=== PATIENT | male | born 2000 | race African-American/Black ===

== ENCOUNTER 2022-09-23 05:11 | Emergency (ER) | payer BC, OTHER ==
[~2022-09-23] VITALS: Ht 188 cm; Wt 73.0 kg
[2022-09-23] MEDS ORDERED: LIDOCAINE 1% INJ 20 ML VIAL INJ ONE (05:30)
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
[2022-09-23] MEDS ORDERED: fentaNYL INJ 100 MCG/2 ML AMP IVP PRN (05:45)
[2022-09-23 06:18] LABS: BASOPHILS % (AUTO) 1 % (0-10); EOSINOPHILS % (AUTO) 0 % (0-10); HEMATOCRIT 46 % (40-54); HEMOGLOBIN 15.4 g/dL (13.3-17.7); LYMPHOCYTES # (AUTO) 2.2 10^3/uL (1.0-4.0); LYMPHOCYTES % (AUTO) 27 % (12-44); MEAN CORPUSCULAR HEMOGLOBIN 29 pg (25-34); MEAN CORPUSCULAR HGB CONC 34 g/dL (32-36); MEAN CORPUSCULAR VOLUME 88 fL (80-99); MEAN PLATELET VOLUME 12.8 fL (9.0-12.2); MONOCYTES # (AUTO) 0.5 10^3/uL (0.0-1.0); MONOCYTES % (AUTO) 7 % (0-12); NEUTROPHILS # (AUTO) 5.1 10^3/uL (1.8-7.8); NEUTROPHILS % (AUTO) 65 % (42-75); PLATELET COUNT 206 10^3/uL (130-400); WHITE BLOOD COUNT 7.9 10^3/uL (4.3-11.0)
[2022-09-23 06:38] LABS: ALBUMIN 4.6 GM/DL (3.2-4.5); CHLORIDE 107 MMOL/L (98-107); POTASSIUM 3.3 MMOL/L (3.6-5.0); SODIUM 139 MMOL/L (135-145)
[2022-09-23 06:40] LABS: CALCIUM 9.4 MG/DL (8.5-10.1)
[2022-09-23 06:41] LABS: GLUCOSE 121 MG/DL (70-105); TOTAL PROTEIN 7.5 GM/DL (6.4-8.2)
[2022-09-23 06:42] LABS: CARBON DIOXIDE 18 MMOL/L (21-32)
[2022-09-23 06:43] LABS: BILIRUBIN,TOTAL 0.3 MG/DL (0.1-1.0)
[2022-09-23 06:44] LABS: ALKALINE PHOSPHATASE 57 U/L (40-136); CREATININE SERUM 1.13 MG/DL (0.60-1.30); GFR ESTIMATED 94
[2022-09-23] MEDS ORDERED: ONDANSETRON 4 MG/2 ML (SDV) Z0FRAN IVP ONE (06:45)
[2022-09-23] MEDS ORDERED: fentaNYL INJ 100 MCG/2 ML AMP IVP ONE ×2 (06:45→07:45)
[2022-09-23] MEDS ORDERED: NS IV 1000 ML 1,000 ML IV SCH ×2 (06:45→08:45)
[2022-09-23] MEDS ORDERED: proPOfol 200 MG/20 ML (DIPRIVAN) VIAL IV ONE (06:45)
[2022-09-23 06:46] LABS: BUN/CREATININE RATIO 8
[2022-09-23 06:47] LABS: ALANINE AMINOTRANSFERASE 91 U/L (0-55)
[2022-09-23 06:48] LABS: LIPASE 44 U/L (8-78)
[2022-09-23] MEDS ORDERED: LIDOCAINE UROJET 2% GEL 10 ML PKG TOP ONE (07:00)
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
[2022-09-23 08:38] LABS: BILIRUBIN,URINE NEGATIVE (NEGATIVE); CLARITY,URINE CLEAR; COLOR,URINE YELLOW; GLUCOSE, URINE (UA) NEGATIVE (NEGATIVE); KETONES,URINE NEGATIVE (NEGATIVE); LEUKOCYTE ESTERASE ,URINE NEGATIVE (NEGATIVE); NITRITE,URINE NEGATIVE (NEGATIVE); PROTEIN,URINE 3+ (NEGATIVE)
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
--- NOTE | 2022-09-23 08:45 | Diagnostic Imaging Report ---
INDICATION: Pain after trauma COMPARISON: None available TECHNIQUE: 3 radiographs of the right ankle dated 09/23/2022 FINDINGS: Acute obliquely oriented minimally comminuted fracture of the distal fibular shaft with associated minimal lateral displacement and mild apex medial angulation. Mild half shaft width anterior displacement is also identified. Acute fracturing of the base of the medial malleolus is noted which is laterally displaced and slightly distracted. There is slight asymmetry of the ankle mortise superiorly with slight widening noted medially. The talar dome appears intact. Significant pes planus deformity of the foot. IMPRESSION: Acute mildly displaced fracturing of the distal fibular shaft and medial malleolus as described above. Slight asymmetry of the ankle mortise, suggesting underlying ligamentous injury. Significant pes planus deformity of the foot, of uncertain chronicity. If there is clinical concern for the foot itself, dedicated radiographs of the right foot would be recommended. Soft tissue swelling about the ankle. Dictated by: Dictated on workstation # [id number]
[2022-09-23 08:49] LABS: BACTERIA,URINE FEW /HPF; SQUAMOUS EPITHELIAL CELL,UR 0-2 /HPF
--- NOTE | 2022-09-23 09:19 | Diagnostic Imaging Report ---
INDICATION: Post left hip reduction, hip dislocation COMPARISON: 09/23/2022. TECHNIQUE: Single radiograph of the pelvis dated 09/23/2022 at 0856 FINDINGS: The left femoral head demonstrates improved positioning compared to prior examination, now appearing to appropriately overlie the left acetabulum. Comminuted fracturing through the left acetabulum is again identified. This appears relatively similar to the prior examination. Raymundo catheter overlying the midline pelvis. Small amount of contrast is noted within the urinary bladder, decreased since the prior examination. No new fracture. IMPRESSION: Interval reduction of previously noted left hip dislocation with persistent comminuted fracturing of the left acetabulum. Dictated by: Dictated on workstation # [id number]
[2022-09-23 11:35] VITALS: BP 125/78
== END 2022-09-23 11:35 | disposition short-term general hospital (02) ==
LOC: ER 05:13
DX: S73.005A Unspecified dislocation of left hip, initial encounter (principal); S32.402A Unspecified fracture of left acetabulum, initial encounter for closed fracture; S82.891A Other fracture of right lower leg, initial encounter for closed fracture; S61.512A Laceration without foreign body of left wrist, initial encounter; S01.21XA Laceration without foreign body of nose, initial encounter; J93.9 Pneumothorax, unspecified; Z28.310 Unvaccinated for COVID-19; V47.5XXA Car driver injured in collision with fixed or stationary object in traffic accident, initial encounter; Y92.410 Unspecified street and highway as the place of occurrence of the external cause
CPT/HCPCS: 12002; 12011; 12052; 23605; 27752; 29515; 36415; 51702; 70450; 71260; 72125; 72128; 72131; 72170; 73610; 74177; 80053; 81000; 83690; 85025; 86900; 86901; 93041; 99291

== ENCOUNTER 2022-10-01 09:27 | Inpatient (IN) | payer BC ==
[~2022-10-01] VITALS: Ht 185.5 cm; Wt 68.5 kg
[2022-10-01] MEDS ORDERED: DIPH50CA33 PO (12:06)
[2022-10-01] MEDS ORDERED: ENOX40DI8 SQ (12:07)
[2022-10-01] MEDS ORDERED: META800T PO (12:08)
[2022-10-01] MEDS ORDERED: NALO4SPR3 NS (12:10)
[2022-10-01] MEDS ORDERED: OXYC10TA7 PO (12:10)
[2022-10-01] MEDS ORDERED: OXCA600T10 PO (12:11)
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
[2022-10-01] MEDS ORDERED: guaiFENesin/CODEINE (ROBITUSSIN AC) 10ML UDC PO PRN (13:30)
[2022-10-01] MEDS ORDERED: MELATONIN 3 MG TABLET PO PRN (13:30)
[2022-10-01] MEDS ORDERED: CALCIUM CARBONATE 500 MG (TUMS) TAB.CHEW PO PRN (13:30)
[2022-10-01] MEDS ORDERED: LOPERAMIDE 2 MG (IMODIUM) TABLET PO PRN (13:30)
[2022-10-01] MEDS ORDERED: BISACODYL 10 MG SUPP (DULCOLAX) PR PRN (13:30)
[2022-10-01] MEDS ORDERED: ONDANSETRON 4 MG (ZOFRAN) ORAL DISSOLVE TAB PO PRN (13:30)
[2022-10-01] MEDS ORDERED: DOCUSATE SODIUM 100 MG (COLACE) CAP PO PRN (13:30)
[2022-10-01] MEDS ORDERED: FLEET ENEMA ADULT 1 EA BTL PR PRN (13:30)
[2022-10-01] MEDS ORDERED: diphenhydrAMINE 25 MG TAB (BENADRYL) PO PRN (13:30)
[2022-10-01] MEDS ORDERED: LACTULOSE SYRUP 10GM/15ML (ENULOSE) 30ML UDC PO PRN (13:30)
[2022-10-01] MEDS ORDERED: NON-FORMULARY MEDICATION 1 EA EA (Diphenhydramine HCl 50 MG) PO PRN (13:30)
[2022-10-01] MEDS ORDERED: NON-FORMULARY MEDICATION 1 EA EA (Oxycodone HCl 10 MG) PO PRN (13:30)
[2022-10-01] MEDS ORDERED: ALPRAZolam 0.25 MG (XANAX) TAB PO PRN (13:30)
[2022-10-01 14:40] VITALS: BP 119/81
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
[2022-10-01] MEDS ORDERED: FLU QUADRIvalent (6 months+) 60 mcg/0.5 ml 2022-23 (Fluzone) IM ONE (18:00)
[2022-10-01] MEDS ORDERED: OXCA300O5 PO (18:55)
[2022-10-01] MEDS ORDERED: OXCA300T18 PO (18:56)
[2022-10-01 20:00] VITALS: BP 135/66
[2022-10-01] MEDS: OXcarbazepine (TRILEPTAL) 300 MG TAB PO SCH (20:26)
[2022-10-01] MEDS: DOCUSATE SODIUM 100 MG (COLACE) CAP PO SCH (20:36)
[2022-10-01] MEDS: SENNA W/DOCUSATE (SENOKOT S) TABLET PO SCH (20:36)
[2022-10-01] MEDS: polyethylene glycoL POWDER 17 GM (MIRALAX) PACK PO SCH (20:36)
[2022-10-01] MEDS ORDERED: OXcarbazepine (TRILEPTAL) 300 MG TAB PO SCH (21:00)
[2022-10-01] MEDS ORDERED: NON-FORMULARY MEDICATION 1 EA EA (Oxcarbazepine 600 MG) PO SCH (21:00)
[2022-10-01] MEDS ORDERED: METAXALONE 800 MG PO SCH (21:00)
[2022-10-02] MEDS: diphenhydrAMINE 25 MG TAB (BENADRYL) PO PRN ×2 (00:52→23:41)
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
[2022-10-02 06:09] LABS: BASOPHILS % (AUTO) 0 % (0-10); EOSINOPHILS # (AUTO) 0.1 10^3/uL (0.0-0.3); EOSINOPHILS % (AUTO) 1 % (0-10); HEMATOCRIT 28 % (40-54); HEMOGLOBIN 9.5 g/dL (13.3-17.7); LYMPHOCYTES # (AUTO) 1.9 10^3/uL (1.0-4.0); LYMPHOCYTES % (AUTO) 20 % (12-44); MEAN CORPUSCULAR HEMOGLOBIN 30 pg (25-34); MEAN CORPUSCULAR HGB CONC 34 g/dL (32-36); MEAN CORPUSCULAR VOLUME 89 fL (80-99); MEAN PLATELET VOLUME 10.8 fL (9.0-12.2); MONOCYTES # (AUTO) 1.1 10^3/uL (0.0-1.0); MONOCYTES % (AUTO) 11 % (0-12); NEUTROPHILS # (AUTO) 6.5 10^3/uL (1.8-7.8); NEUTROPHILS % (AUTO) 67 % (42-75); PLATELET COUNT 320 10^3/uL (130-400); WHITE BLOOD COUNT 9.7 10^3/uL (4.3-11.0)
[2022-10-02 06:23] LABS: ALBUMIN 3.6 GM/DL (3.2-4.5); BILIRUBIN,TOTAL 0.6 MG/DL (0.1-1.0); CALCIUM 9.2 MG/DL (8.5-10.1); CREATININE SERUM 0.77 MG/DL (0.60-1.30); POTASSIUM 4.1 MMOL/L (3.6-5.0); TOTAL PROTEIN 6.9 GM/DL (6.4-8.2)
[2022-10-02 07:33] VITALS: BP 134/73
[2022-10-02] MEDS: ENOXAPARIN 40 MG/0.4 ML (LOVENOX) SYR SQ SCH (08:26)
[2022-10-02] MEDS: DOCUSATE SODIUM 100 MG (COLACE) CAP PO SCH ×3 (08:27→20:58)
[2022-10-02] MEDS: SENNA W/DOCUSATE (SENOKOT S) TABLET PO SCH ×2 (08:27→20:57)
[2022-10-02] MEDS: OXcarbazepine (TRILEPTAL) 300 MG TAB PO SCH ×2 (08:27→20:29)
[2022-10-02] MEDS: polyethylene glycoL POWDER 17 GM (MIRALAX) PACK PO SCH ×2 (08:27→20:57)
--- NOTE | 2022-10-02 09:04 | Physical Therapy Daily Note ---
PT Daily Note-Current Subjective Pt sitting up in bed upon arrival. Pt agrees to PT. Pt reports to PT that he and family are making plans to be able to get pt back home to 2nd floor apartment when d/c from ARU. Pain Location: No Pain Reported Section J - Health Conditions 1. Rarely or not at all 2. Occasionally 3. Frequently 4. Almost constantly 8. Unable to answer Pain Effect on Sleep: 1 Pain Interference with Therapy: 1 Pain Interference w/Day-to-Day: 1 Mental Status Patient Orientation: Person, Place, Time, Situation Transfers SCALE: Activities may be completed with or without assistive devices. 0-Hzooleaftv-otfniqc completes the activity by him/herself with no assistance from a helper. 5-Set-up or Clean-up Assistance-helper sets up or cleans up; patient completes activity. [place] assists only prior to or following the activity. 4-Supervision or Touching Assistance-helper provides verbal cues and/or touching/steadying and/or contact guard assistance as patient completes activity. Assistance may be provided throughout the activity or intermittently. 3-Partial/Moderate Assistance-helper does LESS THAN HALF the effort. [place] lifts, holds or supports trunk or limbs, but provides less than half the effort. 2-Substantial/Maximal Assistance-helper does MORE THAN HALF the effort. [place] lifts or holds trunk or limbs and provides more than half the effort. 8-Rrwdgwsrf-mbyppp does ALL the effort. Patient does none of the effort to complete the activity. Or, the assistance of 2 or more helpers is required for the patient to complete the activity. If activity was not attempted, code reason: 7-Patient Refused. 9-Not Applicable-not attempted and the patient did not perform the activity before the current illness, exacerbation or injury. 10-Not Attempted due to Environmental Limitations-(lack of equipment, weather restraints, etc.). 88-Not Attempted due to Medical Conditions or Safety Concerns. Lying to Sitting/Side of Bed(Q: 4 Chair/Nob-uj-Zohoj Xfer(QC): 4 Weight Bearing Right Lower Extremity: Right Non Weight Bearing Left Lower Extremity: Left Non Weight Bearing s/p ORIF: R ankle NWB for 8 weeks starting 09/24/22- s/p ORIF: L acetabulum for 3 months starting 09/25/22 Wheelchair Training Does the Pt Use a Wheelchair?: Yes Wheel 50 ft with 2 turns (QC): 6 Wheel 150 ft (QC): 6 Type of Wheelchair: Manual Exercises NuStep Minutes: 15 NuStep Workload: 1 Treatments Tx focused on slide board TF (from bed to WCH & WCH to NuStep), strengthening and ROM w/in precautions and WB limits for both R ankle & L hip. Pt also completes WCH mobility focusing on sharp turns and backing up. Pt returns to room to rest at end of tx w/all needs met, call light in hand. Assessment Current Status: Good Progress Pt demonstrates good UE strength with TF and able to complete WCH mobility well. Pt demonstrates decreased weakness in L LE due to fx & WB status. PT Short Term Goals Short Term Goals Time Frame: Oct 08, 2022 Chair/mgt-wo-tuytg transfer: 5 PT Nursing Home Goals Nursing Home Goals PT Nursing Home Goals Time Frame: Oct 22, 2022 Roll Left & Right (QC): 6 Sit to Lying (QC): 6 Lying-Sitting on Side/Bed(QC): 6 Sit to Stand (QC): 88 Chair/Mhp-pn-Nttkc Xfer(QC): 6 Toilet Transfer (QC): 6 Car Transfer (QC): 6 Does the Patient Walk: No and Walking Goal NOT indicated Walk 10 feet (QC): 88 Walk 50ft with 2 Turns (QC): 88 Walk 150 ft (QC): 88 Walking 10ft on Uneven Surface: 88 1 Step (curb) (QC): 88 4 Steps (QC): 88 12 Steps (QC): 88 Picking up an Object (QC): 88 Does the Pt use WC or Scooter?: Yes Wheel 50 feet with 2 turns (QC: 6 Type: Manual Wheel 150 feet: 6 Type: Manual PT Plan Problem List Problem List: Activity Tolerance, Functional Strength Treatment/Plan Treatment Plan: Continue Plan of Care Treatment Plan: Bed Mobility, Education, Functional Activity Skyler, Functional Strength, Safety, Therapeutic Exercise, Transfers Treatment Duration: Oct 22, 2022 Frequency: At least 5 of 7 days/Wk (IRF) Estimated Hrs Per Day: 1.5 hours per day Patient and/or Family Agrees t: Yes Safety Risks/Education Patient Education: Transfer Techniques, Correct Positioning Teaching Recipient: Patient Teaching Methods: Discussion Response to Teaching: Verbalize Understanding Time Time In: 800 Time Out: 845 DATE: Oct 02, 2022 Total Billed Treatment Time: 45 Total Billed Treatment 1, WCH (15m), FA (15m) & EX (15m) TIFFANY PLASCENCIA PTA Oct 02, 2022 09:04
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
--- NOTE | 2022-10-02 10:35 | Occupational Ther Daily Note ---
OT Current Status-Daily Note Subjective Pt was up in his w/c and agreed to a shower today. Appearance Pt left sitting up in bed with all needs within reach. Mental Status/Objective Patient Orientation: Person, Place, Time, Situation ADL-Treatment Therapy Code Descriptions/Definitions Functional [place] Measure: 0=Not Assessed/NA 4=Minimal Assistance 1=Total Assistance 5=Supervision or Setup 2=Maximal Assistance 6=Modified [place] 3=Moderate Assistance 7=Complete IndependenceSCALE: Activities may be completed with or without assistive devices. 7-Jzulmxfqfr-hipozfk completes the activity by him/herself with no assistance from a helper. 5-Set-up or Clean-up Assistance-helper sets up or cleans up; patient completes activity. [place] assists only prior to or following the activity. 4-Supervision or Touching Assistance-helper provides verbal cues and/or touching/steadying and/or contact guard assistance as patient completes acti vity. Assistance may be provided throughout the activity or intermittently. 3-Partial/Moderate Assistance-helper does LESS THAN HALF the effort. [place] lifts, holds or supports trunk or limbs, but provides less than half the effort. 2-Substantial/Maximal Assistance-helper does MORE THAN HALF the effort. [place] lifts or holds trunk or limbs and provides more than half the effort. 7-Wvulryzbg-kdpnqx does ALL the effort. Patient does none of the effort to complete the activity. Or, the assistance of 2 or more helpers is required for the patient to complete the activity. If activity was not attempted, code reason: 7-Patient Refused. 9-Not Applicable-not attempted and the patient did not perform the activity before the current illness, exacerbation or injury. 10-Not Attempted due to Environmental Limitations-(lack of equipment, weather restraints, etc.). 88-Not Attempted due to Medical Conditions or Safety Concerns. Eating (QC): 6 Oral Hygiene (QC): 6 Shower/Bathe Self (QC): 5 Upper Body Dressing (QC): 5 Lower Body Dressing (QC): 3 (min-mod assist for donning pants (pulling pant over hips)) On/Off Footwear: 3 (min assist for donning sock with sock aide) Toileting Hygiene (QC): 5 (using the urinal) Toilet Transfer (QC): 4 Pt is able to complete all slide board transfers with supervision/set up assist for w/c placement and cues for safety. Pt is doing extremely well for day 2 of rehab. Pt able to don all clothing with use of AE to ensure hip precautions are followed. Therapist covered and taped R LE and L hip to prepare for shower. Pt completed transfer onto shower bench with only upper body strength, as he did not use the transfer board. Post demonstration of LHS, he was able to complete shower with set up assist. Pt was able to don shirt with set up assist. Once back in w/c, pt able to thread bilateral legs with community service officer coordinator and then required min-mod assist to pull pants over hips. Pt sat at sink to perform all grooming independently. Pt required min assist to don sock with sock aide- different sock aide will be attempted tomorrow. Pt practiced transfer to raised toilet with supervision. He was able to perform transfer with no difficulty while following all hip/LE precautions. He needs some assistance with w/c placement due to pt's long legs and small bathroom area, but other than that, he is doing well and increasing his independence with ADLs. Education OT Patient Education: Correct positioning, Energy conservation, Modified ADL techniques, Progress toward Goal/Update tx plan, Purpose of tx/functional activities, Reviewed precautions, Rehab process, Safety issues, Transfer techniques, Use of adapted equipment, W/C management Teaching Recipient: Patient Teaching Methods: Demonstration, Discussion Response to Teaching: Verbalize Understanding, Return Demonstration OT Short Term Goals Short Term Goals Time Frame: Oct 08, 2022 Eatin Oral hygiene: 6 Toileting hygiene: 4 Shower/bathe self: 3 Upper body dressin Lower body dressin Putting on/taking off footwear: 4 OT Manager Front Goals Mcfp Goals Time Frame: Oct 15, 2022 Acute change in mental status: 0 Inattention: 0 Disorganized thinkin Altered level of consciousness: 0 Eating (QC): 6 Oral Hygiene (QC): 6 Toileting Hygiene (QC): 6 Shower/Bathe Self (QC): 5 Upper Body Dressing (QC): 6 Lower Body Dressing (QC): 5 On/Off Footwear (QC): 6 Additional Goals: 1-Demonstrate ADL Tasks, 2-Verbalize Understanding, 3-Imp roveStrength/Skyler 1=Demonstrate adherence to instructed precautions during ADL tasks. 2=Patient will verbalize/demonstrate understanding of assistive devices/modifications for ADL. 3=Patient will improve strength/tolerance for activity to enable patient to perform ADL's. OT Education/Plan Problem List/Assessment Assessment: Decreased Activ Tolerance, Impaired I ADL's, Impaired Self-Care Skills Discharge Recommendations Plan/Recommendations: Continue POC Treatment Plan/Plan of Care Treatment,Training & Education: Yes Patient would benefit from OT for education, treatment and training to promote independence in ADL's, mobility, safety and/or upper extremity function for ADL's. Plan of Care: ADL Retraining, Caregiver Training, Functional Mobility, Group Exercise/Act as Ind, Orthotic Fitting/Training, UE Funct Exercise/Act, W/C Management Training Treatment Duration: Oct 15, 2022 Frequency: At least 5 of 7 days/Wk (IRF) Estimated Hrs Per Day: 1.5 hours per day (75-90 min/day ) Agreement: Yes Rehab Potential: Good Time Start Time: 09:15 Stop Time: 10:30 DATE: Oct 02, 2022 Total Time Billed (hr/min): 75 Billed Treatment Time 1 visit ADL x5 Shanique Mello OT Oct 02, 2022 10:35
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
[2022-10-02 20:00] VITALS: BP 138/89
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
[2022-10-03 07:21] VITALS: BP 137/89
[2022-10-03] MEDS: OXcarbazepine (TRILEPTAL) 300 MG TAB PO SCH ×2 (07:58→21:39)
[2022-10-03] MEDS: ENOXAPARIN 40 MG/0.4 ML (LOVENOX) SYR SQ SCH (07:59)
[2022-10-03] MEDS: ACETAMINOPHEN 325 MG TABLET PO PRN ×2 (09:04→21:40)
[2022-10-03] MEDS: polyethylene glycoL POWDER 17 GM (MIRALAX) PACK PO SCH ×2 (09:18→21:34)
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
--- NOTE | 2022-10-03 10:46 | Occupational Ther Daily Note ---
OT Current Status-Daily Note Subjective Pt was laying in bed with wound care nurse and nursing present in room changing his dressings. Pt reports that his family could possibly come in or Saturday or stair training, but he will call to double check. Appearance Pt was left laying in bed with all needs within reach. Mental Status/Objective Patient Orientation: Person, Place, Time, Situation ADL-Treatment Therapy Code Descriptions/Definitions Functional [place] Measure: 0=Not Assessed/NA 4=Minimal Assistance 1=Total Assistance 5=Supervision or Setup 2=Maximal Assistance 6=Modified [place] 3=Moderate Assistance 7=Complete IndependenceSCALE: Activities may be completed with or without assistive devices. 4-Kmgekytqgv-cbeqmyw completes the activity by him/herself with no assistance from a helper. 5-Set-up or Clean-up Assistance-helper sets up or cleans up; patient completes activity. [place] assists only prior to or following the activity. 4-Supervision or Touching Assistance-helper provides verbal cues and/or touching/steadying and/or contact guard assistance as patient completes activity. Assistance may be provided throughout the activity or intermittently. 3-Partial/Moderate Assistance-helper does LESS THAN HALF the effort. [place] lifts, holds or supports trunk or limbs, but provides less than half the effort. 2-Substantial/Maximal Assistance-helper does MORE THAN HALF the effort. [place] lifts or holds trunk or limbs and provides more than half the effort. 8-Fixhynfcm-pxrpic does ALL the effort. Patient does none of the effort to complete the activity. Or, the assistance of 2 or more helpers is required for the patient to complete the activity. If activity was not attempted, code reason: 7-Patient Refused. 9-Not Applicable-not attempted and the patient did not perform the activity befo re the current illness, exacerbation or injury. 10-Not Attempted due to Environmental Limitations-(lack of equipment, weather re straints, etc.). 88-Not Attempted due to Medical Conditions or Safety Concerns. Upper Body Dressing (QC): 5 Lower Body Dressing (QC): 5 On/Off Footwear: 3 Pt was able to doff and don UE and LE clothing with set up assist. No physical assistance needed. Pt used steam box operator to doff/don pants while supine/head slightly elevated in bed. Pt still required min assist for donning sock with sock aide, due to tight socks. Pt able to complete all transfers without slide board. Pt reports that he doesn't feel 100% ready to return home and would like to continue to get stronger. Although reports that he thinks he will have no problem with his home set up. Other Treatment Pt completed meal preparation task of making a no bake cheesecake. He required cues and education regarding hip precautions with lower shelving and refrigerator. Pt was able to appropriately carry all ingredients while propelling w/c through kitchen. He needed no physical assistance with task, only cues for how to use kitchen tools, as pt reported not cooking/baking a lot at home. He tolerated and performed the task well. Pt participated in UE exercises in all planes with 5 lb bilateral hand weights 1x15. He needed rest breaks in between each set, with visual SOB and lack of endurance and strength after completion of exercises. Education given for pursed lip breathing and breathing during exercises. Education OT Patient Education: Correct positioning, Energy conservation, Exercise program, Home exercise program, Modified ADL techniques, Purpose of tx/functional activities, Reviewed precautions, Rehab process, Use of adapted equipment, W/C management Teaching Recipient: Patient Teaching Methods: Demonstration, Discussion Response to Teaching: Verbalize Understanding, Return Demonstration OT Short Term Goals Short Term Goals Time Frame: Oct 08, 2022 Eatin Oral hygiene: 6 Toileting hygiene: 4 Shower/bathe self: 3 Upper body dressin Lower body dressin Putting on/taking off footwear: 4 OT [facility] Goals Sap Specialist Goals Time Frame: Oct 15, 2022 Acute change in mental status: 0 Inattention: 0 Disorganized thinkin Altered level of consciousness: 0 Eating (QC): 6 Oral Hygiene (QC): 6 Toileting Hygiene (QC): 6 Shower/Bathe Self (QC): 5 Upper Body Dressing (QC): 6 Lower Body Dressing (QC): 5 On/Off Footwear (QC): 6 Additional Goals: 1-Demonstrate ADL Tasks, 2-Verbalize Understanding, 3- ImproveStrength/Skyler 1=Demonstrate adherence to instructed precautions during ADL tasks. 2=Patient will verbalize/demonstrate understanding of assistive devices/modifications for ADL. 3=Patient will improve strength/tolerance for activity to enable patient to perform ADL's. OT Education/Plan Problem List/Assessment Assessment: Decreased Activ Tolerance, Decreased UE Strength, Impaired I ADL's, Impaired Self-Care Skills Discharge Recommendations Plan/Recommendations: Continue POC Therapy Discharge Recommendati: Bath Aide, Homemaker Support, Home & Family Equpiment Recommendations-D/C: Bath Chair, Knock Out Hand, Bedside Commode (drop arm), Hip Kit, Sock Aide Treatment Plan/Plan of Care Treatment,Training & Education: Yes Patient would benefit from OT for education, treatment and training to promote independence in ADL's, mobility, safety and/or upper extremity function for ADL's. Plan of Care: ADL Retraining, Caregiver Training, Functional Mobility, Group Exercise/Act as Ind, Orthotic Fitting/Training, UE Funct Exercise/Act, W/C Management Training Treatment Duration: Oct 15, 2022 Frequency: At least 5 of 7 days/Wk (IRF) Estimated Hrs Per Day: 1.5 hours per day (75-90 min/day ) Agreement: Yes Rehab Potential: Good Time Start Time: 09:15 Stop Time: 10:45 DATE: Oct 03, 2022 Total Time Billed (hr/min): 90 Billed Treatment Time 1 visit ADL x4 (60 min) EX x2 (30 min) Shanique Mello OT Oct 03, 2022 10:45
[2022-10-03] MEDS: SENNA W/DOCUSATE (SENOKOT S) TABLET PO SCH ×2 (10:58→21:34)
--- NOTE | 2022-10-03 11:13 | Physical Therapy Daily Note ---
PT Daily Note-Current Subjective Pt laying Supine in bed w/HOB raised. Pt agrees to PT. Pain Location: No Pain Reported Section J - Health Conditions 1. Rarely or not at all 2. Occasionally 3. Frequently 4. Almost constantly 8. Unable to answer Pain Effect on Sleep: 1 Pain Interference with Therapy: 1 Pain Interference w/Day-to-Day: 1 Mental Status Patient Orientation: Person, Place, Time, Situation Transfers SCALE: Activities may be completed with or without assistive devices. 9-Goefdxhcxm-dmgzpqf completes the activity by him/herself with no assistance from a helper. 5-Set-up or Clean-up Assistance-helper sets up or cleans up; patient completes activity. [place] assists only prior to or following the activity. 4-Supervision or Touching Assistance-helper provides verbal cues and/or touching/steadying and/or contact guard assistance as patient completes activity. Assistance may be provided throughout the activity or intermittently. 3-Partial/Moderate Assistance-helper does LESS THAN HALF the effort. [place] lifts, holds or supports trunk or limbs, but provides less than half the effort. 2-Substantial/Maximal Assistance-helper does MORE THAN HALF the effort. [place] lifts or holds trunk or limbs and provides more than half the effort. 3-Glmbpxbpf-dsiugw does ALL the effort. Patient does none of the effort to complete the activity. Or, the assistance of 2 or more helpers is required for the patient to complete the activity. If activity was not attempted, code reason: 7-Patient Refused. 9-Not Applicable-not attempted and the patient did not perform the activity before the current illness, exacerbation or injury. 10-Not Attempted due to Environmental Limitations-(lack of equipment, weather restraints, etc.). 88-Not Attempted due to Medical Conditions or Safety Concerns. Lying to Sitting/Side of Bed(Q: 6 Chair/Wdv-dm-Imoqb Xfer(QC): 5 Weight Bearing Right Lower Extremity: Right Non Weight Bearing Left Lower Extremity: Left Non Weight Bearing s/p ORIF: R ankle NWB for 8 weeks starting 09/24/22- s/p ORIF: L acetabulum for 3 months starting 09/25/22 Wheelchair Training Does the Pt Use a Wheelchair?: Yes Wheel 50 ft with 2 turns (QC): 6 Wheel 150 ft (QC): 6 Type of Wheelchair: Manual Exercises Supine Ex: Ankle pumps (L side only), Quad Set, Glut sets, Heel Slides (AAROM w/L LE for safety & weakness), Hip abd/add Supine Reps: 15 NuStep Minutes: 15 NuStep Workload: 1 Treatments TF from bed to [facility], no slide board used as pt is lifting self w/UE from [facility] to bed & vice versa. Pt propels [facility] in hallway and TF from [facility] to Therapy Mat for Supine Ex & TF. Pt uses NuStep and takes RB. Pt TF back to [facility] and propels back to room. Pt TF back to bed as Wound Care Nurse arrives. All needs met, call light in hand. Assessment Current Status: Good Progress Pt continues to gain strength and mobility of tasks. PT Short Term Goals Short Term Goals Time Frame: Oct 08, 2022 Chair/gyb-lo-trnpl transfer: 5 PT Pipe Crew Foreman Goals [facility] Goals PT Pipe Crew Foreman Goals Time Frame: Oct 22, 2022 Roll Left & Right (QC): 6 Sit to Lying (QC): 6 Lying-Sitting on Side/Bed(QC): 6 Sit to Stand (QC): 88 Chair/Ver-nm-Xnmib Xfer(QC): 6 Toilet Transfer (QC): 6 Car Transfer (QC): 6 Does the Patient Walk: No and Walking Goal NOT indicated Walk 10 feet (QC): 88 Walk 50ft with 2 Turns (QC): 88 Walk 150 ft (QC): 88 Walking 10ft on Uneven Surface: 88 1 Step (curb) (QC): 88 4 Steps (QC): 88 12 Steps (QC): 88 Picking up an Object (QC): 88 Does the Pt use WC or Scooter?: Yes Wheel 50 feet with 2 turns (QC: 6 Type: Manual Wheel 150 feet: 6 Type: Manual PT Plan Treatment/Plan Treatment Plan: Continue Plan of Care Treatment Plan: Other Treatment Duration: Oct 02, 2022 Frequency: Estimated Hrs Per Day: Other Patient and/or Family Agrees t: Yes Safety Risks/Education Patient Education: Transfer Techniques, Correct Positioning Teaching Recipient: Patient Teaching Methods: Discussion Response to Teaching: Verbalize Understanding Time Time In: 800 Time Out: 900 DATE: Oct 03, 2022 Total Billed Treatment Time: 60 Total Billed Treatment 1, FA (15m), [facility] (15m) & EX x2 (30m) TIFFANY PLASCENCIA AUTOMOBILE LIGHTS ASSEMBLER Oct 03, 2022 11:13
--- NOTE | 2022-10-03 13:52 | Physical Therapy Daily Note ---
PT Daily Note-Current Subjective Pt in [place] upon arrival. Pt agrees to PT. GF is present during tx. Pain Location: No Pain Reported Section J - Health Conditions 1. Rarely or not at all 2. Occasionally 3. Frequently 4. Almost constantly 8. Unable to answer Pain Effect on Sleep: 1 Pain Interference with Therapy: 1 Pain Interference w/Day-to-Day: 1 Mental Status Patient Orientation: Person, Place, Time, Situation Transfers SCALE: Activities may be completed with or without assistive devices. 7-Xbtplmmfvk-pylrjxm completes the activity by him/herself with no assistance from a helper. 5-Set-up or Clean-up Assistance-helper sets up or cleans up; patient completes activity. [place] assists only prior to or following the activity. 4-Supervision or Touching Assistance-helper provides verbal cues and/or touching/steadying and/or contact guard assistance as patient completes activity. Assistance may be provided throughout the activity or intermittently. 3-Partial/Moderate Assistance-helper does LESS THAN HALF the effort. [place] lifts, holds or supports trunk or limbs, but provides less than half the effort. 2-Substantial/Maximal Assistance-helper does MORE THAN HALF the effort. [place] lifts or holds trunk or limbs and provides more than half the effort. 4-Itwkwzjrr-dmrvkz does ALL the effort. Patient does none of the effort to complete the activity. Or, the assistance of 2 or more helpers is required for the patient to complete the activity. If activity was not attempted, code reason: 7-Patient Refused. 9-Not Applicable-not attempted and the patient did not perform the activity before the current illness, exacerbation or injury. 10-Not Attempted due to Environmental Limitations-(lack of equipment, weather restraints, etc.). 88-Not Attempted due to Medical Conditions or Safety Concerns. Chair/Mpq-xg-Pauhn Xfer(QC): 5 Toilet Transfer (QC): 5 Weight Bearing Right Lower Extremity: Right Non Weight Bearing Left Lower Extremity: Left Non Weight Bearing s/p ORIF: R ankle NWB for 8 weeks starting 09/24/22- s/p ORIF: L acetabulum for 3 months starting 09/25/22 Wheelchair Training Does the Pt Use a Wheelchair?: Yes Wheel 50 ft with 2 turns (QC): 5 Wheel 150 ft (QC): 5 Type of Wheelchair: Manual Exercises NuStep Minutes: 15 NuStep Workload: 1 Treatments Pt TF from toilet to [facility] after donning pants. Pt propels [facility] in hallway then uses NuStep before TF back to [facility]. Pt returns to room and asks to stay in [facility] after tx. All needs met, call light w/in reach. Assessment Current Status: Good Progress Pt transfers well, not even using slide board for TF at this time. Pt is able to TF from lower surface to higher and vice versa. PT Short Term Goals Short Term Goals Time Frame: Oct 08, 2022 Chair/aoh-dn-sdvzp transfer: 5 PT [facility] Goals [facility] Goals PT [facility] Goals Time Frame: Oct 22, 2022 Roll Left & Right (QC): 6 Sit to Lying (QC): 6 Lying-Sitting on Side/Bed(QC): 6 Sit to Stand (QC): 88 Chair/Xrl-dj-Nhctm Xfer(QC): 6 Toilet Transfer (QC): 6 Car Transfer (QC): 6 Does the Patient Walk: No and Walking Goal NOT indicated Walk 10 feet (QC): 88 Walk 50ft with 2 Turns (QC): 88 Walk 150 ft (QC): 88 Walking 10ft on Uneven Surface: 88 1 Step (curb) (QC): 88 4 Steps (QC): 88 12 Steps (QC): 88 Picking up an Object (QC): 88 Does the Pt use WC or Scooter?: Yes Wheel 50 feet with 2 turns (QC: 6 Type: Manual Wheel 150 feet: 6 Type: Manual PT Plan Problem List Problem List: Activity Tolerance Treatment/Plan Treatment Plan: Continue Plan of Care Treatment Plan: Other Treatment Duration: Oct 02, 2022 Frequency: Estimated Hrs Per Day: Other Patient and/or Family Agrees t: Yes Safety Risks/Education Patient Education: Transfer Techniques, W/C Management Teaching Recipient: Patient, Significant Other Teaching Methods: Demonstration Response to Teaching: Verbalize Understanding Time Time In: 1310 Time Out: 1340 DATE: Oct 03, 2022 Total Billed Treatment Time: 30 Total Billed Treatment 1, [facility] (15m) & EX (15m) TIFFANY PLASCENCIA MANUFACTURING MECHANIC Oct 03, 2022 13:51
[2022-10-03 20:19] VITALS: BP 133/66
[2022-10-03] MEDS: DOCUSATE SODIUM 100 MG (COLACE) CAP PO SCH (21:34)
[2022-10-03] MEDS: BACITRACIN OINTMENT 28 GM TUBE TOP SCH (21:41)
[2022-10-03] MEDS: diphenhydrAMINE 25 MG TAB (BENADRYL) PO PRN (23:24)
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
[2022-10-04 07:41] VITALS: BP 134/75
[2022-10-04] MEDS: ENOXAPARIN 40 MG/0.4 ML (LOVENOX) SYR SQ SCH (08:15)
[2022-10-04] MEDS: OXcarbazepine (TRILEPTAL) 300 MG TAB PO SCH ×2 (08:15→20:05)
[2022-10-04] MEDS: SENNA W/DOCUSATE (SENOKOT S) TABLET PO SCH ×2 (08:15→20:11)
[2022-10-04] MEDS: polyethylene glycoL POWDER 17 GM (MIRALAX) PACK PO SCH ×2 (08:15→20:11)
[2022-10-04] MEDS: DOCUSATE SODIUM 100 MG (COLACE) CAP PO SCH ×2 (08:15→20:11)
[2022-10-04] MEDS: BACITRACIN OINTMENT 28 GM TUBE TOP SCH ×2 (08:16→20:06)
--- NOTE | 2022-10-04 08:59 | Occupational Ther Daily Note ---
OT Current Status-Daily Note Subjective Pt laying in bed upon arrival. He stated that he would like to shower. Appearance Pt was left sitting EOB with all needs within reach. Mental Status/Objective Patient Orientation: Person, Place, Time, Situation ADL-Treatment Therapy Code Descriptions/Definitions Functional [place] Measure: 0=Not Assessed/NA 4=Minimal Assistance 1=Total Assistance 5=Supervision or Setup 2=Maximal Assistance 6=Modified [place] 3=Moderate Assistance 7=Complete IndependenceSCALE: Activities may be completed with or without assistive devices. 4-Hhibwulrkc-pmttzzo completes the activity by him/herself with no assistance from a helper. 5-Set-up or Clean-up Assistance-helper sets up or cleans up; patient completes activity. [place] assists only prior to or following the activity. 4-Supervision or Touching Assistance-helper provides verbal cues and/or touching/steadying and/or contact guard assistance as patient completes activity. Assistance may be provided throughout the activity or intermittently. 3-Partial/Moderate Assistance-helper does LESS THAN HALF the effort. [place] lifts, holds or supports trunk or limbs, but provides less than half the effort. 2-Substantial/Maximal Assistance-helper does MORE THAN HALF the effort. [place] lifts or holds trunk or limbs and provides more than half the effort. 8-Dggaprznh-xfxeqh does ALL the effort. Patient does none of the effort to complete the activity. Or, the assistance of 2 or more helpers is required for the patient to complete the activity. If activity was not attempted, code reason: 7-Patient Refused. 9-Not Applicable-not attempted and the patient did not perform the activity before the current illness, exacerbation or injury. 10-Not Attempted due to Environmental Limitations-(lack of equipment, weather restraints, etc.). 88-Not Attempted due to Medical Conditions or Safety Concerns. Eating (QC): 6 Oral Hygiene (QC): 6 Shower/Bathe Self (QC): 5 Upper Body Dressing (QC): 6 Lower Body Dressing (QC): 6 On/Off Footwear: 3 Pt is able to complete all transfers with independence. Pt doffed/donned all clothing with independence and use of interior design instructor/dressing stick. Pt completed shower with set up assist for covering dressings. He used LHS to reach L LE. He transferred back to w/c and performed all grooming tasks at sink with independe nce. He is gaining more independence and becoming more comfortable with w/c mobility in tight spaces. Min assist needed for donning sock with sock aide. Other Treatment Pt able to retrieve laundry basket and carry it on his lap and propel w/c to laundry room. He required assist to reach buttons of washer, but able to perform all other steps independently. Pt reports he does not have a washer/dryer unit in apartment and that it is located on ground floor. He states he girlfriend or mother will do his laundry for him post d/c. Pt propelled w/c through hallways and into tub/shower bathroom. He needed min cues for set up of w/c in position for transfer onto tub/shower bench. Pt reported his mom already bought a bench for his tub/shower at home. He transferred from w/c to bench x2 with min cues for following hip precautions but no physical assist. He reported no concerns with transfer and feels comfortable with it. Pt performed 1x10 UE exercises with blue theraband with minimal rest breaks. Pt educated on importance of performing these every day to improve his UE strength to assist with transfers and ADLs. Education OT Patient Education: Correct positioning, Energy conservation, Exercise program, Home exercise program, Modified ADL techniques, Progress toward Goal/Update tx plan, Purpose of tx/functional activities, Reviewed precautions, Rehab process, Safety issues, Transfer techniques, Use of adapted equipment, W/C management Teaching Recipient: Patient Teaching Methods: Demonstration, Discussion Response to Teaching: Verbalize Understanding, Return Demonstration OT Short Term Goals Short Term Goals Time Frame: Oct 08, 2022 Eatin Oral hygiene: 6 Toileting hygiene: 4 Shower/bathe self: 3 Upper body dressin Lower body dressin Putting on/taking off footwear: 4 OT Group Home Goals Braid Cutter Goals Time Frame: Oct 15, 2022 Acute change in mental status: 0 Inattention: 0 Disorganized thinkin Altered level of consciousness: 0 Eating (QC): 6 Oral Hygiene (QC): 6 Toileting Hygiene (QC): 6 Shower/Bathe Self (QC): 5 Upper Body Dressing (QC): 6 Lower Body Dressing (QC): 5 On/Off Footwear (QC): 6 Additional Goals: 1-Demonstrate ADL Tasks, 2-Verbalize Understanding, 3- ImproveStrength/Skyler 1=Demonstrate adherence to instructed precautions during ADL tasks. 2=Patient will verbalize/demonstrate understanding of assistive devices/modifications for ADL. 3=Patient will improve strength/tolerance for activity to enable patient to perform ADL's. OT Education/Plan Problem List/Assessment Assessment: Decreased Activ Tolerance, Decreased UE Strength, Impaired I ADL's, Impaired Self-Care Skills Discharge Recommendations Plan/Recommendations: Continue POC Therapy Discharge Recommendati: Homemaker Support, Home & Family Equpiment Recommendations-D/C: Extended Bath Bench, Manager Performance, Hip Kit Treatment Plan/Plan of Care Treatment,Training & Education: Yes Patient would benefit from OT for education, treatment and training to promote independence in ADL's, mobility, safety and/or upper extremity function for ADL's. Plan of Care: ADL Retraining, Caregiver Training, Functional Mobility, Group Exercise/Act as Ind, Orthotic Fitting/Training, UE Funct Exercise/Act, W/C Management Training Treatment Duration: Oct 15, 2022 Frequency: At least 5 of 7 days/Wk (IRF) Estimated Hrs Per Day: 1.5 hours per day (75-90 min/day ) Agreement: Yes Rehab Potential: Good Time Start Time: 07:35 Stop Time: 09:05 DATE: Oct 04, 2022 Total Time Billed (hr/min): 90 Billed Treatment Time 1 visit ADL x5 (70 min) EX (20 min) Shanique Mello OT Oct 04, 2022 08:59
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
--- NOTE | 2022-10-04 15:08 | Physical Therapy Daily Note ---
PT Daily Note-Current Subjective Pt. in bed states he is ready to get up and get out for a while. No c/o pain but describes "stiffness and soreness" L hip during movement Pain Location: No Pain Reported Section J - Health Conditions 1. Rarely or not at all 2. Occasionally 3. Frequently 4. Almost constantly 8. Unable to answer Pain Effect on Sleep: 1 Pain Interference with Therapy: 1 Pain Interference w/Day-to-Day: 1 Mental Status Patient Orientation: Normal For Age Transfers SCALE: Activities may be completed with or without assistive devices. 8-Plwfnjyvxo-ugsmazi completes the activity by him/herself with no assistance from a helper. 5-Set-up or Clean-up Assistance-helper sets up or cleans up; patient completes activity. [place] assists only prior to or following the activity. 4-Supervision or Touching Assistance-helper provides verbal cues and/or touching/steadying and/or contact guard assistance as patient completes activity. Assistance may be provided throughout the activity or intermittently. 3-Partial/Moderate Assistance-helper does LESS THAN HALF the effort. [place] lifts, holds or supports trunk or limbs, but provides less than half the effort. 2-Substantial/Maximal Assistance-helper does MORE THAN HALF the effort. [place] lifts or holds trunk or limbs and provides more than half the effort. 9-Yncckqfya-uhczbe does ALL the effort. Patient does none of the effort to complete the activity. Or, the assistance of 2 or more helpers is required for the patient to complete the activity. If activity was not attempted, code reason: 7-Patient Refused. 9-Not Applicable-not attempted and the patient did not perform the activity before the current illness, exacerbation or injury. 10-Not Attempted due to Environmental Limitations-(lack of equipment, weather restraints, etc.). 88-Not Attempted due to Medical Conditions or Safety Concerns. Chair/Phk-xv-Kljce Xfer(QC): 5 pt. needs set up ie bring w/c to EOB , lock breaks and in some circumstances arm rests donned or doffed chair, pt does entire TRF using UEs indep after set up and is able to manage arm rest off on and brakes on off if he can reach them Weight Bearing Right Lower Extremity: Right Non Weight Bearing Left Lower Extremity: Left Non Weight Bearing s/p ORIF: R ankle NWB for 8 weeks starting 09/24/22- s/p ORIF: L acetabulum for 3 months starting 09/25/22 Wheelchair Training Does the Pt Use a Wheelchair?: Yes Wheel 50 ft with 2 turns (QC): 6 Wheel 150 ft (QC): 6 Type of Wheelchair: Manual 800ft w/c on off elevator, turning in tight spots, on carpet and tile , fig 8s in tight areas with good control and safe management of w/c, backing ,turns etc Treatments TRFs, w/c mob Assessment Current Status: Good Progress PT Short Term Goals Short Term Goals Time Frame: Oct 08, 2022 Chair/tff-sw-lbisk transfer: 5 PT Chcf Goals Chcf Goals PT Certified Veterinary Technician Goals Time Frame: Oct 22, 2022 Roll Left & Right (QC): 6 Sit to Lying (QC): 6 Lying-Sitting on Side/Bed(QC): 6 Sit to Stand (QC): 88 Chair/Xkx-si-Bdkyk Xfer(QC): 6 Toilet Transfer (QC): 6 Car Transfer (QC): 6 Does the Patient Walk: No and Walking Goal NOT indicated Walk 10 feet (QC): 88 Walk 50ft with 2 Turns (QC): 88 Walk 150 ft (QC): 88 Walking 10ft on Uneven Surface: 88 1 Step (curb) (QC): 88 4 Steps (QC): 88 12 Steps (QC): 88 Picking up an Object (QC): 88 Does the Pt use WC or Scooter?: Yes Wheel 50 feet with 2 turns (QC: 6 Type: Manual Wheel 150 feet: 6 Type: Manual PT Plan Treatment/Plan Treatment Plan: Continue Plan of Care Treatment Plan: Other Treatment Duration: Oct 02, 2022 Frequency: Estimated Hrs Per Day: Other Patient and/or Family Agrees t: Yes Safety Risks/Education Patient Education: Transfer Techniques, Correct Positioning, W/C Management, Safety Issues Teaching Recipient: Patient Teaching Methods: Demonstration, Discussion Response to Teaching: Verbalize Understanding, Return Demonstration, Reinforcement Needed Time Time In: 1430 Time Out: 1500 DATE: Oct 04, 2022 Total Billed Treatment Time: 30 Total Billed Treatment 1,WC20m,FA10m MARIALUISA ESTEVEZ SHEAR OPERATOR AUTOMATIC Oct 04, 2022 15:08
[2022-10-04 20:18] VITALS: BP 135/78
[2022-10-05 06:16] LABS: ALBUMIN 3.3 GM/DL (3.2-4.5); POTASSIUM 3.8 MMOL/L (3.6-5.0)
[2022-10-05 06:17] LABS: CALCIUM 8.6 MG/DL (8.5-10.1)
[2022-10-05 06:19] LABS: TOTAL PROTEIN 6.4 GM/DL (6.4-8.2)
[2022-10-05 06:21] LABS: BILIRUBIN,TOTAL 0.5 MG/DL (0.1-1.0)
[2022-10-05 06:22] LABS: CREATININE SERUM 0.79 MG/DL (0.60-1.30)
[2022-10-05 07:45] VITALS: BP 119/80
[2022-10-05] MEDS: polyethylene glycoL POWDER 17 GM (MIRALAX) PACK PO SCH (07:58)
[2022-10-05] MEDS: DOCUSATE SODIUM 100 MG (COLACE) CAP PO SCH ×2 (07:58→08:38)
[2022-10-05] MEDS: ENOXAPARIN 40 MG/0.4 ML (LOVENOX) SYR SQ SCH (08:37)
[2022-10-05] MEDS: SENNA W/DOCUSATE (SENOKOT S) TABLET PO SCH (08:38)
[2022-10-05] MEDS: OXcarbazepine (TRILEPTAL) 300 MG TAB PO SCH (08:38)
[2022-10-05] MEDS: BACITRACIN OINTMENT 28 GM TUBE TOP SCH (08:39)
--- NOTE | 2022-10-05 09:07 | Occupational Ther Daily Note ---
OT Current Status-Daily Note Subjective Pt in w/c on arrival, alert. Pt agrees to therapy. C/o of no pain at this time. Pt reports he feels ready to go home. Reported to other disciplines. Mental Status/Objective Patient Orientation: Person, Place, Time, Situation ADL-Treatment Pt completed oral hygiene at sink in w/c independently. Pt able to propel self to sink. Therapy Code Descriptions/Definitions Functional [place] Measure: 0=Not Assessed/NA 4=Minimal Assistance 1=Total Assistance 5=Supervision or Setup 2=Maximal Assistance 6=Modified [place] 3=Moderate Assistance 7=Complete IndependenceSCALE: Activities may be completed with or without assistive devices. 6-Hncgwuwgnn-mqpqzjx completes the activity by him/herself with no assistance from a helper. 5-Set-up or Clean-up Assistance-helper sets up or cleans up; patient completes activity. [place] assists only prior to or following the activity. 4-Supervision or Touching Assistance-helper provides verbal cues and/or touching/steadying and/or contact guard assistance as patient completes activity. Assistance may be provided throughout the activity or intermittently. 3-Partial/Moderate Assistance-helper does LESS THAN HALF the effort. [place] lifts, holds or supports trunk or limbs, but provides less than half the effort. 2-Substantial/Maximal Assistance-helper does MORE THAN HALF the effort. [place] lifts or holds trunk or limbs and provides more than half the effort. 1-Xclykaurc-pqgwon does ALL the effort. Patient does none of the effort to complete the activity. Or, the assistance of 2 or more helpers is required for the patient to complete the activity. If activity was not attempted, code reason: 7-Patient Refused. 9-Not Applicable-not attempted and the patient did not perform the activity before the current illness, exacerbation or injury. 10-Not Attempted due to Environmental Limitations-(lack of equipment, weather restraints, etc.). 88-Not Attempted due to Medical Conditions or Safety Concerns. Oral Hygiene (QC): 6 On/Off Footwear: 6 (Using sock aide to don L sock independently.) Other Treatment Pt completed 20 reps of 6 different UE exercises with blue resistance theraband. Pt completed 5 min for each rotating forward and backwards on arm bike set to a resistance of 25. Pt completed daysi exercises to the front and side for 2 mins each with 2# wrist wts. Pt manipulated blue theraputty to strengthen pinch and lard mixer. Pt completed 15 push ups from w/c. Pt completed 5 different dowel exercises with 10 lbs added to dowel. These exercises are beneficial for self care skills, transfers and mobility. All exercises were performed following hip/leg precautions and skilled instruction provided for proper technique and positioning. Education OT Patient Education: Correct positioning, Home exercise program, Transfer techniques Teaching Recipient: Patient Teaching Methods: Demonstration, Discussion Response to Teaching: Verbalize Understanding, Return Demonstration BIMS CAM BIMS Expression of Ideas and Wants: Without Difficulty Understanding Verbal Content: Understands Brief Interview/Mental Status: No IRF JENNY BIMS: IRF JENNY BIMS Response (Comments) Value Repitition of Three Words Three 3 Recalls Socks Yes, No Cue Required 2 Recalls Blue Yes, No Cue Required 2 Recalls Bed Yes, No Cue Required 2 Year Correct 3 Month Accurate Within 5 Days 2 Day Correct 1 Total 15 Patient Normally Able to Recal: Current Session, Location of own room, Staff Names and faces, That he/she in a [facility] Should Staff Asses. Mental St.: No Memory/Recall Ability: Current Season, Location of Own Room, Staff Names and Faces, That He/She in Hospitall OT Short Term Goals Short Term Goals Time Frame: Oct 08, 2022 Eatin Oral hygiene: 6 Toileting hygiene: 4 Shower/bathe self: 3 Upper body dressin Lower body dressin Putting on/taking off footwear: 4 OT Custodial Goals Custodial Goals Time Frame: Oct 15, 2022 Acute change in mental status: 0 Inattention: 0 Disorganized thinkin Altered level of consciousness: 0 Eating (QC): 6 (met) Oral Hygiene (QC): 6 Toileting Hygiene (QC): 6 Shower/Bathe Self (QC): 5 Upper Body Dressing (QC): 6 Lower Body Dressing (QC): 5 On/Off Footwear (QC): 6 (met using sock aid) Additional Goals: 1-Demonstrate ADL Tasks, 2-Verbalize Understanding, 3- ImproveStrength/Skyler 1=Demonstrate adherence to instructed precautions during ADL tasks. 2=Patient will verbalize/demonstrate understanding of assistive devices/modifications for ADL. 3=Patient will improve strength/tolerance for activity to enable patient to perform ADL's. OT Education/Plan Problem List/Assessment Assessment: Decreased UE Strength, Impaired I ADL's, Impaired Self-Care Skills Discharge Recommendations Plan/Recommendations: Continue POC Treatment Plan/Plan of Care Patient would benefit from OT for education, treatment and training to promote independence in ADL's, mobility, safety and/or upper extremity function for ADL's. Plan of Care: ADL Retraining, Caregiver Training, Functional Mobility, Group Exercise/Act as Ind, Orthotic Fitting/Training, UE Funct Exercise/Act, W/C Management Training Treatment Duration: Oct 15, 2022 Frequency: At least 5 of 7 days/Wk (IRF) Estimated Hrs Per Day: 1.5 hours per day (75-90 min/day ) Agreement: Yes Rehab Potential: Good Time Start Time: 08:00 Stop Time: 09:00 DATE: Oct 05, 2022 Total Time Billed (hr/min): 60 Billed Treatment Time 1 visit ADL (10 min) EX 3 (50 min) PHUONG FRIEDMAN Oct 05, 2022 09:07
--- NOTE | 2022-10-05 09:43 | Physical Therapy Progress Note ---
Therapy Progress Note Patient has mobility limitations that significantly impair his daily mobility due to being Non-weight bearing on bilateral lower extremities. This limitation cannot be helped by using a walker or cane. Patient has enough room within residence for a wheelchair and patient can safely use the wheelchair independently. Due to his inability to bear any weight through his bilateral lower extremities, he will need a slideboard and drop arm w/c to allow for transfers to various surfaces including but not limited to bed to w/c, to BSC or toilet, to car or other vehicle, to steps as needed for entry and exit to his domicile. The drop arm w/c will allow him more access to various transfer surfaces and enable his transfers to be performed in a safer manner to avoid weight being put through his LEs and decrease the risk of falls. Patient will also need a seatbelt-type restraint in the w/c due to his potential for increased activity and because his w/c may need to be used to perform transfers up or down stairs, 12 or more, in an emergency situation. CRISTINA RUDD PT Oct 05, 2022 09:43
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
--- NOTE | 2022-10-05 11:05 | Physical Therapy Daily Note ---
PT Daily Note-Current Subjective Pt. agrees to Rx, no pain c/o. Pt. was initially expecting his friends to come for training in how to possibly get him up down 12-14 stairs to his apartment but now states they cant all come at 1230 pm. Pt. ultimately states he hopes house worker can transport him up his steps safely as he would trust them more. Pain Location: No Pain Reported Section J - Health Conditions 1. Rarely or not at all 2. Occasionally 3. Frequently 4. Almost constantly 8. Unable to answer Pain Effect on Sleep: 1 Pain Interference with Therapy: 1 Pain Interference w/Day-to-Day: 1 Mental Status Patient Orientation: Normal For Age Attachments: Other-See Comments (cast R ankle) Transfers SCALE: Activities may be completed with or without assistive devices. 0-Wsuacabzun-wybrhsj completes the activity by him/herself with no assistance from a helper. 5-Set-up or Clean-up Assistance-helper sets up or cleans up; patient completes activity. [place] assists only prior to or following the activity. 4-Supervision or Touching Assistance-helper provides verbal cues and/or touching/steadying and/or contact guard assistance as patient completes activity. Assistance may be provided throughout the activity or intermittently. 3-Partial/Moderate Assistance-helper does LESS THAN HALF the effort. [place] lifts, holds or supports trunk or limbs, but provides less than half the effort. 2-Substantial/Maximal Assistance-helper does MORE THAN HALF the effort. [place] lifts or holds trunk or limbs and provides more than half the effort. 8-Plcijdtha-qjzzxp does ALL the effort. Patient does none of the effort to complete the activity. Or, the assistance of 2 or more helpers is required for the patient to complete the activity. If activity was not attempted, code reason: 7-Patient Refused. 9-Not Applicable-not attempted and the patient did not perform the activity before the current illness, exacerbation or injury. 10-Not Attempted due to Environmental Limitations-(lack of equipment, weather restraints, etc.). 88-Not Attempted due to Medical Conditions or Safety Concerns. Sit to Lying (QC): 6 Lying to Sitting/Side of Bed(Q: 6 Chair/Ldo-qs-Jjflq Xfer(QC): 6 pt. demonstrated indep in positioning w/c at bed for TRF, TRFing over indep, long sitting to supine , then ex then sup to long sitting , from long sit position pt. reached all aspects of his w/c without breaking hip precautions , unbraked his w/c , turned it for approach from opposite side, put brakes on again and replaced arm rests effectively. then indep to TRF back in to w/c. Weight Bearing Right Lower Extremity: Right Non Weight Bearing Left Lower Extremity: Left Non Weight Bearing s/p ORIF: R ankle NWB for 8 weeks starting 09/24/22- s/p ORIF: L acetabulum for 3 months starting 09/25/22 Wheelchair Training Does the Pt Use a Wheelchair?: Yes Wheel 50 ft with 2 turns (QC): 6 Wheel 150 ft (QC): 6 Type of Wheelchair: Manual safe w/c mob all surfaces Exercises Supine Ex: Ankle pumps, Quad Set, Glut sets, Heel Slides, Short Arc Quads, Scooting, Hip abd/add (assisted) Supine Reps: 15 Treatments w/c to bed to w/c TRFs , w/c mob, bilat LE ex within limitations Assessment Current Status: Good Progress pt. needs w/c with removable arm rests and leg rests to safely manuever at home in tight spaces PT Short Term Goals Short Term Goals Time Frame: Oct 08, 2022 Chair/ayb-en-jppni transfer: 5 PT Dye House Supervisor Goals D[place] House Supervisor Goals PT Group Home Goals Time Frame: Oct 22, 2022 Roll Left & Right (QC): 6 Sit to Lying (QC): 6 Lying-Sitting on Side/Bed(QC): 6 Sit to Stand (QC): 88 Chair/Gaz-ww-Ihkux Xfer(QC): 6 Toilet Transfer (QC): 6 Car Transfer (QC): 6 Does the Patient Walk: No and Walking Goal NOT indicated Walk 10 feet (QC): 88 Walk 50ft with 2 Turns (QC): 88 Walk 150 ft (QC): 88 Walking 10ft on Uneven Surface: 88 1 Step (curb) (QC): 88 4 Steps (QC): 88 12 Steps (QC): 88 Picking up an Object (QC): 88 Does the Pt use WC or Scooter?: Yes Wheel 50 feet with 2 turns (QC: 6 Type: Manual Wheel 150 feet: 6 Type: Manual PT Plan Treatment/Plan Treatment Plan: Continue Plan of Care Treatment Plan: Other Treatment Duration: Oct 02, 2022 Frequency: Estimated Hrs Per Day: Other Patient and/or Family Agrees t: Yes Safety Risks/Education Patient Education: Transfer Techniques, Reviewed Precautions, Correct Positioning, W/C Management, Disease Process, Safety Issues Teaching Recipient: Patient Teaching Methods: Demonstration, Discussion Response to Teaching: Verbalize Understanding, Return Demonstration, Reinforcem ent Needed Time Time In: 1000 Time Out: 1100 DATE: Oct 05, 2022 Total Billed Treatment Time: 60 Total Billed Treatment 1,WC15m,FA25m,EX20m MARIALUISA ESTEVEZ PALAEONTOLOGIST Oct 05, 2022 11:05
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
[2022-10-05] MEDS ORDERED: META800T PO (12:20)
[2022-10-05] MEDS ORDERED: ENOX40DI8 SQ (12:20)
[2022-10-05] MEDS ORDERED: OXYC10TA7 PO (12:21)
[2022-10-05] MEDS ORDERED: OXCA300T18 PO (12:21)
[2022-10-05] MEDS ORDERED: TIZA-186 PO (12:21)
--- NOTE | 2022-10-05 12:23 | D/C HH Face to Face Order ---
D/C HH Face to Face Orders Reconcile Patient Problems Problems Reviewed?: Yes Instructions for Patient HH Patient Instructions/FollowUp: PCP 1 week Physician to follow Patient: [facility] Discharge Diet for Home: No Restrictions Patient Problems: Right leg fracture Patient Data-Allergies,Ht & Wt Patient Allergies: Coded Allergies: No Known Drug Allergies (Unverified , 09/23/22) Home Health Need/Face to Face Date of Face to Face: Oct 05, 2022 Clinical Findings: Generalized weakness and fatigue, Instability, Muscle weakness, Non or partial weight bearing, Unsteady gait I have seen Pt tgcv-gd-ovag: Yes Discharged To: Home Diagnosis/Conditions: Debility Patient is Homebound due to: Muscle weakness, Non-weight bearing, Pain w/ambulation Homebound Status Due to the above stated illness, injury or surgical procedure (medical condition or diagnosis) and associated clinical findings, the patient is homebound because of his/her inability to leave home except with aid of a supportive device and/or person AND leaving the home requires a considerable and taxing effort or is medically contraindicated. Pt req the following assistanc: Wheelchair Home Health Nursing Orders Home Health Services Order: Nursing Services, Animal Trainer Supervisor-Evaluate & Treat, Physical Therapy-Evaluate & Treat Certify Stmt I certify that this patient is under my care and that I, a nurse practitioner or a physician; a blood bank assistant working with me, had a face to face encounter that - meets the physician face to face encounter requirements with this patient as dated. MONICA GRAHAM DO Oct 05, 2022 12:23
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
--- NOTE | 2022-10-05 13:05 | Physical Therapy Daily Note ---
PT Daily Note-Current Subjective Patient sitting in bed upon PT arrival, agreeable to treatment. Patient rates pain at 4/10 in left hip currently. Pain Section J - Health Conditions 1. Rarely or not at all 2. Occasionally 3. Frequently 4. Almost constantly 8. Unable to answer Pain Effect on Sleep: 1 Pain Interference with Therapy: 1 Pain Interference w/Day-to-Day: 1 Mental Status Patient Orientation: Person, Place, Time, Situation Transfers SCALE: Activities may be completed with or without assistive devices. 8-Hsyshsndnf-hslyqru completes the activity by him/herself with no assistance from a helper. 5-Set-up or Clean-up Assistance-helper sets up or cleans up; patient completes activity. [place] assists only prior to or following the activity. 4-Supervision or Touching Assistance-helper provides verbal cues and/or buck anahy/steadying and/or contact guard assistance as patient completes activity. Assistance may be provided throughout the activity or intermittently. 3-Partial/Moderate Assistance-helper does LESS THAN HALF the effort. [place] lifts, holds or supports trunk or limbs, but provides less than half the effort. 2-Substantial/Maximal Assistance-helper does MORE THAN HALF the effort. [place] lifts or holds trunk or limbs and provides more than half the effort. 8-Cpmfsvxhs-zprhgr does ALL the effort. Patient does none of the effort to complete the activity. Or, the assistance of 2 or more helpers is required for the patient to complete the activity. If activity was not attempted, code reason: 7-Patient Refused. 9-Not Applicable-not attempted and the patient did not perform the activity before the current illness, exacerbation or injury. 10-Not Attempted due to Environmental Limitations-(lack of equipment, weather restraints, etc.). 88-Not Attempted due to Medical Conditions or Safety Concerns. Roll Left & Right (QC): 6 Sit to Lying (QC): 6 Lying to Sitting/Side of Bed(Q: 6 Sit to Stand (QC): 88 Chair/Oqg-xl-Zizmp Xfer(QC): 6 Toilet Transfer (QC): 6 Weight Bearing Right Lower Extremity: Right Non Weight Bearing Left Lower Extremity: Left Non Weight Bearing s/p ORIF: R ankle NWB for 8 weeks starting 09/24/22- s/p ORIF: L acetabulum for 3 months starting 09/25/22 Gait Training Does the Patient Walk?: No and Walking Goal NOT indicated Wheelchair Training Does the Pt Use a Wheelchair?: Yes Wheel 50 ft with 2 turns (QC): 6 Wheel 150 ft (QC): 6 Stair Training #of Steps: 12 1 Step (curb) (QC): 1 4 Steps (QC): 1 12 Steps (QC): 1 Patient and two friends were educated on proper performance and safety with w/c transfers on stairs. Patient was belted into w/c prior to performing stairs, and leg rests adjusted to appropriate length prior to transfer to chair. PT and OT demonstrated with patients new w/c, on 2 steps, with total assistance the proper performance of ascending and descending stairs. Patient propelled himself Independently 150 feet to the second floor stairs and was able to back his w/c against the steps. One friend behind him and one in front, the patients friends slowly performed total assistance for ascending and descending 10 steps. The patients friends were able to perform slowly, safely and appropriately without any pain reported by patient or issues reported. Assessment Current Status: Good Progress Patient lying supine in bed upon PT arrival, agreeable to treatment. Patient performs all observed transfers and bed mobility with [place]. Patient and two friends were educated on proper performance and safety with w/c transfers on stairs. Patient was belted into w/c prior to performing stairs, and leg rests adjusted to appropriate length prior to transfer to chair. PT and OT demonstrated with patients new w/c, on 2 steps, with total assistance the proper performance of ascending and descending stairs. Patient propelled himself Independently 150 feet to the second floor stairs and was able to back his w/c against the steps. One friend behind him and one in front, the patients friends slowly performed total assistance for ascending and descending 10 steps. The patients friends were able to perform slowly, safely and appropriately without any pain reported by patient or issues reported. Patient in w/c post treatment with all needs met, and all questions answered. Co-Treatment performed with OT with regard to patient ADL performance with the new w/c, features of the w/c and performance of all mobility due to the need of 2 skilled clinicians for advancement of patients independence and impending return to home in [address] [place] apartment. PT Short Term Goals Short Term Goals Time Frame: Oct 08, 2022 Chair/wtv-wb-xazra transfer: 5 (MET) PT Correction Goals Bender Machine Goals PT Bender Machine Goals Time Frame: Oct 22, 2022 Roll Left & Right (QC): 6 (MET) Sit to Lying (QC): 6 (MET) Lying-Sitting on Side/Bed(QC): 6 (MET) Sit to Stand (QC): 88 Chair/Ngi-ds-Pykpc Xfer(QC): 6 (MET) Toilet Transfer (QC): 6 (MET) Car Transfer (QC): 6 (MET) Does the Patient Walk: No and Walking Goal NOT indicated Walk 10 feet (QC): 88 Walk 50ft with 2 Turns (QC): 88 Walk 150 ft (QC): 88 Walking 10ft on Uneven Surface: 88 1 Step (curb) (QC): 88 4 Steps (QC): 88 12 Steps (QC): 88 Picking up an Object (QC): 88 Does the Pt use WC or Scooter?: Yes Wheel 50 feet with 2 turns (QC: 6 (MET) Type: Manual Wheel 150 feet: 6 (MET) Type: Manual PT Plan Treatment/Plan Treatment Plan: Discontinue PT, goals met Treatment Plan: Other Treatment Duration: Oct 02, 2022 Frequency: Estimated Hrs Per Day: Other Patient and/or Family Agrees t: Yes Safety Risks/Education Patient Education: Gait Training, Transfer Techniques, W/C Management Teaching Recipient: Patient, Friend Teaching Methods: Demonstration, Discussion Response to Teaching: Verbalize Understanding, Return Demonstration Time Time In: 1230 Time Out: 1300 DATE: Oct 05, 2022 Total Billed Treatment Time: 30 Total Billed Treatment Visit, W/C (30) CRISTINA RUDD PT Oct 05, 2022 13:05
--- NOTE | 2022-10-05 14:20 | Occupational Ther Daily Note ---
OT Current Status-Daily Note Subjective Pt alert, lying in bed. Agrees to therapy. Training with friends to assist pt up stairs using w/c to access 2nd floor apartment. Mental Status/Objective Patient Orientation: Person, Place, Time, Situation ADL-Treatment Therapy Code Descriptions/Definitions Functional [place] Measure: 0=Not Assessed/NA 4=Minimal Assistance 1=Total Assistance 5=Supervision or Setup 2=Maximal Assistance 6=Modified [place] 3=Moderate Assistance 7=Complete IndependenceSCALE: Activities may be completed with or without assistive devices. 4-Yefgqboehc-vdgrvlt completes the activity by him/herself with no assistance from a helper. 5-Set-up or Clean-up Assistance-helper sets up or cleans up; patient completes activity. [place] assists only prior to or following the activity. 4-Supervision or Touching Assistance-helper provides verbal cues and/or touching/steadying and/or contact guard assistance as patient completes activity. Assistance may be provided throughout the activity or intermittently. 3-Partial/Moderate Assistance-helper does LESS THAN HALF the effort. [place] lifts, holds or supports trunk or limbs, but provides less than half the effort. 2-Substantial/Maximal Assistance-helper does MORE THAN HALF the effort. [place] lifts or holds trunk or limbs and provides more than half the effort. 8-Otfmprbkf-ekuyhe does ALL the effort. Patient does none of the effort to complete the activity. Or, the assistance of 2 or more helpers is required for the patient to complete the activity. If activity was not attempted, code reason: 7-Patient Refused. 9-Not Applicable-not attempted and the patient did not perform the activity before the current illness, exacerbation or injury. 10-Not Attempted due to Environmental Limitations-(lack of equipment, weather restraints, etc.). 88-Not Attempted due to Medical Conditions or Safety Concerns. Other Treatment Patient and two friends were educated on proper performance and safety with w/c transfers on stairs. Patient was belted into w/c prior to performing stairs, and leg rests adjusted to appropriate length prior to transfer to chair. PT and OT demonstrated with patients new w/c, on 2 steps, with total assistance the proper performance of ascending and descending stairs. Patient propelled himself Independently 150 feet to the second floor stairs and was able to back his w/c against the steps. One friend behind him and one in front, the patients friends slowly performed total assistance for ascending and descending 10 steps. The patients friends were able to perform slowly, safely and appropriately without any pain reported by patient or issues reported. Patient lying supine in bed upon PT arrival, agreeable to treatment. Patient performs all observed transfers and bed mobility with [place]. Patient and two friends were educated on proper performance and safety with w/c transfers on stairs. Patient was belted into w/c prior to performing stairs, and leg rests adjusted to appropriate length prior to transfer to chair. PT and OT demonstrated with patients new w/c, on 2 steps, with total assistance the proper performance of ascending and descending stairs. Patient propelled himself Independently 150 feet to the second floor stairs and was able to back his w/c against the steps. One friend behind him and one in front, the patients friends slowly performed total assistance for ascending and descending 10 steps. The patients friends were able to perform slowly, safely and appropriately without any pain reported by patient or issues reported. Patient in w/c post treatment with all needs met, and all questions answered. Co-Treatment performed with OT with regard to patient ADL performance with the new w/c, features of the w/c and performance of all mobility due to the need of 2 skilled clinicians for advancement of patients independence and impending return to home in [facility] apartment. After session, pt in w/c with friend in room. All needs met. OT Short Term Goals Short Term Goals Time Frame: Oct 08, 2022 Eatin Oral hygiene: 6 Toileting hygiene: 4 Shower/bathe self: 3 Upper body dressin Lower body dressin Putting on/taking off footwear: 4 OT Long-Term Goals Long-Term Goals Time Frame: Oct 15, 2022 Acute change in mental status: 0 Inattention: 0 Disorganized thinkin Altered level of consciousness: 0 Eating (QC): 6 (met) Oral Hygiene (QC): 6 Toileting Hygiene (QC): 6 Shower/Bathe Self (QC): 5 Upper Body Dressing (QC): 6 Lower Body Dressing (QC): 5 On/Off Footwear (QC): 6 (met using sock aid) Additional Goals: 1-Demonstrate ADL Tasks, 2-Verbalize Understanding, 3-Impro veStrength/[place]yler 1=Demonstrate adherence to instructed precautions during ADL tasks. 2=Patient will verbalize/demonstrate understanding of assistive devices/modifications for ADL. 3=Patient will improve strength/tolerance for activity to enable patient to perform ADL's. OT Education/Plan Discharge Recommendations Plan/Recommendations: Continue POC Treatment Plan/Plan of Care Patient would benefit from OT for education, treatment and training to promote independence in ADL's, mobility, safety and/or upper extremity function for ADL's. Plan of Care: ADL Retraining, Caregiver Training, Functional Mobility, Group Exercise/Act as Ind, Orthotic Fitting/Training, UE Funct Exercise/Act, W/C Management Training Treatment Duration: Oct 15, 2022 Frequency: At least 5 of 7 days/Wk (IRF) Estimated Hrs Per Day: 1.5 hours per day (75-90 min/day ) Agreement: Yes Rehab Potential: Good Time Start Time: 12:30 Stop Time: 13:00 DATE: Oct 05, 2022 Total Time Billed (hr/min): 30 Billed Treatment Time 1 visit-FA 2 (30 min) co-treat with PT [id number] (30 min) PHUONG FRIEDMAN Oct 05, 2022 14:20
[2022-10-05 17:17] VITALS: BP 119/80
[2022-10-05 20:44] LABS: HEPATITIS C ANTIBODY C Non-Reactive (Non-Reactive)
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
== END 2022-10-05 17:00 | disposition home health service (06) | DRG 561 ==
PROVIDERS: ADMIT Internal Medicine; ATTEND Internal Medicine
DX: S32.402D Unspecified fracture of left acetabulum, subsequent encounter for fracture with routine healing (principal); S82.891D Other fracture of right lower leg, subsequent encounter for closed fracture with routine healing; S73.005D Unspecified dislocation of left hip, subsequent encounter; R53.83 Other fatigue; G40.909 Epilepsy, unspecified, not intractable, without status epilepticus; F41.9 Anxiety disorder, unspecified; F32.A Depression, unspecified; F12.90 Cannabis use, unspecified, uncomplicated; F10.90 Alcohol use, unspecified, uncomplicated; Z87.891 Personal history of nicotine dependence; V47.5XXD Car driver injured in collision with fixed or stationary object in traffic accident, subsequent encounter
CPT/HCPCS: 36415; 80053; 80074; 82977; 85025